=== PATIENT | male | born 1970 ===

== ENCOUNTER → 2016-09-02 | Outpatient (CLI) | payer BC ==
[2016-09-02 14:18] LABS: CHOLESTEROL/HDL RATIO 6.4
== END | disposition home or self-care (01) ==
LOC: C.LABMFLN 08:12
PROVIDERS: ATTEND Family Medicine
DX: E78.00 Pure hypercholesterolemia, unspecified (principal)

== ENCOUNTER → 2017-06-26 | Outpatient (CLI) | payer BC ==
[2017-06-26 13:49] LABS: CHOLESTEROL/HDL RATIO 7.3
== END | disposition home or self-care (01) ==
LOC: C.LABMFLN 08:41
PROVIDERS: ATTEND Family Medicine
DX: E78.00 Pure hypercholesterolemia, unspecified (principal)